=== PATIENT | female | born 1995 | race African-American/Black ===

== ENCOUNTER 2021-02-12 17:31 | Emergency (ER) | payer OTHER ==
[~2021-02-12] VITALS: Ht 160 cm; Wt 54.0 kg
[2021-02-12] MEDS ORDERED: IBUPROFEN 600MG TABLET PO ONE (18:30)
[2021-02-12] MEDS ORDERED: HYDROCODONE/ACETAMINOPHEN 5/325MG TABLET PO ONE (19:15)
[2021-02-12] MEDS ORDERED: IBUP-2028 MT (19:56)
[2021-02-12] MEDS ORDERED: HYDR-4001 MT (20:33)
[2021-02-12 20:49] VITALS: BP 116/78
== END 2021-02-12 22:10 | disposition home or self-care (01) ==
LOC: ER 17:31
DX: S93.402A Sprain of unspecified ligament of left ankle, initial encounter (principal); S93.602A Unspecified sprain of left foot, initial encounter; V43.62XA Car passenger injured in collision with other type car in traffic accident, initial encounter; Y93.89 Activity, other specified; Y92.488 Other paved roadways as the place of occurrence of the external cause
CPT/HCPCS: 73610; 73630; 81025; 99284